=== PATIENT | female | born 1970 | race Caucasian/White ===

== ENCOUNTER 2020-09-19 19:35 | Emergency (ER) | payer MEDICAID ==
[~2020-09-19] VITALS: Ht 154.9 cm; Wt 63.5 kg
[2020-09-19 19:48] VITALS: BP_SYST 148
--- NOTE | 2020-09-19 19:53 | NUR ---
Patient to ER bed 8 to gown for evaluation. Side rails up. Report given to Flavia.
--- NOTE | 2020-09-19 20:08 | NUR ---
pt a&o x4 from home c/o right upper back and chest pain x 4 days that she describes it as sharp and worsens when she swallows. pt denies nausea, vomiting, diarrhea, fever. pt reports no relief with medication. pt hx of Covid PNA in june and "has not been the same since".
--- NOTE | 2020-09-19 20:11 | NUR ---
ER Dr. Holden at bedside examining patient.
[2020-09-19] MEDS ORDERED: KETOROLAC TROMETHAMINE 30 MG VIAL IVP ONE (20:15)
[2020-09-19] MEDS ORDERED: NACL 0.9% 1,000 ML IV ONE (20:15)
[2020-09-19 20:22] LABS: BILIRUBIN,URINE NEGATIVE (NEGATIVE); BLOOD, URINE NEGATIVE (NEGATIVE); CLARITY/URINE CLEAR (CLEAR); COLOR,URINE YELLOW (YELLOW); GLUCOSE,URINE NEGATIVE (NEGATIVE); KETONES,URINE NEGATIVE (NEGATIVE); LEUKOCYTE ESTERASE ,URINE NEGATIVE (NEGATIVE); NITRITE, URINE NEGATIVE (NEGATIVE); PROTEIN URINE NEGATIVE (NEGATIVE); UROBILINOGEN,URINE 0.2 (0.2-1.0)
[2020-09-19 20:26] LABS: BASOPHILS # (AUTO) 0.1 K/uL (0.0-0.2); BASOPHILS % (AUTO) 0.8 % (0.0-2.0); EOSINOPHILS # (AUTO) 0.1 K/uL (0.0-0.4); EOSINOPHILS % (AUTO) 1.1 % (0.0-4.0); HEMATOCRIT 38.8 % (36-48); HEMOGLOBIN 13.5 g/dL (12.0-16.0); LYMPHOCYTES # (AUTO) 2.3 K/uL (1.0-5.5); LYMPHOCYTES % (AUTO) 29.2 % (20.5-51.5); MEAN CORPUSCULAR HEMOGLOBIN 31 pg (27-31); MEAN CORPUSCULAR HGB CONC 35 % (32-36); MEAN CORPUSCULAR VOLUME 89 fL (79.0-98.0); MONOCYTES # (AUTO) 0.7 K/uL (0.0-1.0); MONOCYTES % (AUTO) 8.9 % (1.7-9.3); NEUTROPHILS # (AUTO) 4.8 K/uL (1.8-7.7); PLATELET COUNT (AUTO) 273 K/uL (130-430); RED BLOOD CELL COUNT(AUTO) 4.34 MIL/uL (4.2-6.2); RED CELL DISTRIBUTION WIDTH 13.9 % (9.0-15.0); WHITE BLOOD COUNT (AUTO) 7.9 K/uL (4.8-10.8)
--- NOTE | 2020-09-19 20:40 | NUR ---
# 20 gauge angiocath placed to LEFT AC. Use of asceptic technique. Opsite placed over site. Blood return noted. Flushed with 10 cc of normal saline. No evidence of infiltration noted. Patient tolerated well.
[2020-09-19 20:45] LABS: CALCIUM 9.3 mg/dL (8.4-11.0); CREATININE 0.75 mg/dL (0.55-1.30)
[2020-09-19 20:50] LABS: ALBUMIN 3.8 g/dL (3.4-4.8); TOTAL BILIRUBIN 1.3 mg/dL (0.0-1.0)
--- NOTE | 2020-09-19 21:21 | NUR ---
Patient reports pain has decreased to 4 out of 10. MD aware.
--- NOTE | 2020-09-19 21:27 | NUR ---
Dr. Holden at bedside speaking with patient.
[2020-09-19] MEDS ORDERED: METH-634 PO (21:32)
[2020-09-19] MEDS ORDERED: IBUP-1969 PO (21:32)
[2020-09-19 21:55] VITALS: BP_SYST 112
--- NOTE | 2020-09-19 21:55 | NUR ---
Patient given written and verbal discharge instructions and verbalizes understanding. ER MD discussed with patient the results and treatment provided. Patient in stable condition. ID arm band removed. IV catheter removed intact and dressing applied, no active bleeding. Rx of ibuprofen and robaxin given. Patient educated on pain management and to follow up with PMD. Pain Scale 2/10. Opportunity for questions provided and answered. Medication side effect fact sheet provided.
== END 2020-09-19 21:55 | disposition home or self-care (01) ==
LOC: SED 19:35
DX: R07.89 Other chest pain (principal); F41.9 Anxiety disorder, unspecified; Z79.899 Other long term (current) drug therapy
CPT/HCPCS: 36415; 71045; 80053; 81003; 84484; 85025; 93005; 96361; 96374; 99285; J1885; J7030